=== PATIENT | male | born 1990 | race Caucasian/White ===

== ENCOUNTER 2024-06-12 06:30 | Emergency (ER) | payer BC, OTHER, SELFPAY ==
[2024-06-12 06:40] VITALS: BP 133/97; PULSE 57; RESP 16; TEMP 36.8; O2SAT 98; BMI 26.6
--- NOTE | 2024-06-12 06:45 | ED_ITS ---
HPI - General Adult General Chief complaint: Chest Pain Stated complaint: chest pains, dizziness Time Seen by Provider: 06/12/24 06:43 History of Present Illness HPI narrative: Patient c/o about 6 episodes of pin-prick left chest pain since 2300 last night. Patient then had an episode of dizziness with vision going out that lasted 20 min while [address] home from work at 0515. Patient denies SOB, recent illness, diaphoresis. Patient declines listing a pharmacy on his account and states, I will probably decline anything you try to give me. [facility]CP [facility] 33-year-[facility] man presenting to the emergency department with concern of twinges of chest pain is if a needle is going into his left chest about 2-3 inches deep. This feeling he has lasts about 1-2 seconds. Was occurring in groups beginning around 11:00 p.m. last night. No noted shortness of breath. Did have sensation at that time into his left arm as well. Had some more episodes this morning when he pulled into his drive and heart to struck and reached over for his lung pail became lightheaded as well and was experiencing these pinpricks and had about 20 seconds of wavy vision. Does exercise regularly without difficulty. No health problems. No medications. Does not use substances; no smoking. In further conversation it appears that he is concerned about a potential blood clot. No headache. Related Data Home Medications ?Medication ?Instructions ?Recorded ?Confirmed No Known Home Medications 06/12/24 06/12/24 Allergies Allergy/AdvReac Type Severity Reaction Status Date / Time No Known Drug Allergies Allergy Verified 06/12/24 06:44 Review of Systems Status of ROS: Reports: 6 or more systems reviewed and unremarkable except as noted in History and below [facility] Social History service: Yes Exam Narrative: Exam Narrative: NAD. Cranial nerves 2-12 intact. Wears glasses. Pupils are equal and reactive. Breathing easily. Heart in slow to bradycardic rate and regular rhythm. No murmur rub or gallop identified. Lungs are clear. Well built. No reproduction of discomfort to palpation over the chest. Skin is warm and dry without evidence of lesions, rash. Moving all extremities without difficulty. Well-perfused. No edema. Const: Vital Signs, click to edit/add: Vital Signs - 24 hr 06/12/24 06:40 06/12/24 08:00 Temperature 98.3 F Pulse Rate [Left P ulse Oximeter] 57 L Pulse Rate [orthos tatic lying Left P ulse Oximeter] 55 L Pulse Rate [orthos tatic sitting Left Pulse Oximeter] 55 L Pulse Rate [orthos tatic standing Lef t Pulse Oximeter] 76 Respiratory Rate 16 Blood Pressure [Le ft Upper Arm] 133/97 H Blood Pressure [or thostatic lying Le ft Arm] 119/85 Blood Pressure [or thostatic sitting Left Arm] 120/82 Blood Pressure [or thostatic standing Left Arm] 122/97 H Pulse Oximetry 98 Oxygen Delivery Me thod Room Air Documenting provider has reviewed patient's vital signs: yes Course Vital Signs Vital signs: Initial Vital Signs Temperature 98.3 F 06/12/24 06:40 Temperature Source Temporal Artery Scan 06/12/24 06:40 Pulse Rate 57 L 06/12/24 06:40 Respiratory Rate 16 06/12/24 06:40 Blood Pressure 133/97 H 06/12/24 06:40 Blood Pressure Mean 109 H 06/12/24 06:40 Blood Pressure Position Semi-Fowlers 06/12/24 06:40 Pulse Oximetry 98 06/12/24 06:40 Oxygen Delivery Method Room Air 06/12/24 06:40 Vital Signs Temperature 98.3 F 06/12/24 06:40 Pulse Rate 57 L 06/12/24 06:40 Respiratory Rate 16 06/12/24 06:40 Blood Pressure 133/97 H 06/12/24 06:40 Pulse Oximetry 98 06/12/24 06:40 Oxygen Delivery Method Room Air 06/12/24 06:40 Temperature 98.3 F 06/12/24 06:40 Pulse Rate 55 L 06/12/24 08:00 Respiratory Rate 16 06/12/24 06:40 Blood Pressure 119/85 06/12/24 08:00 Pulse Oximetry 98 06/12/24 06:40 Oxygen Delivery Method Room Air 06/12/24 06:40 Medical Decision Making MDM Narrative Medical decision making narrative: Very doubtful that this is a blood clot given symptoms as he describes. I would have concerns more about PVCs maybe PACs or some other arrhythmia. Seizure? Does not appear postictal. Other vasospasm? I do not think that this is primary ischemic cardiovascular event. Further, Evelio is opposed to drawing blood 1st that it is uncomfortable experience for him but also has had some bad experiences with it. So I propose just watching on environmental monitoring technician for a while at this point. No events during time of monitoring in the emergency department. Rested. Further discussion reveals that has been working nights lately. Usually a dayshift worker. Has been working a lot. Apparently this happens a couple of times a year. Had a couple very small twinges of discomfort during my final conversation but I do not appreciate anything on monitor upon review Orthostatics are WNL. Is asymptomatic. See patient discharge plan for further discussion After review of the environmental monitoring technician, I cannot see any unusual rhythm over this time. Stay well-hydrated. Try to get quality and regular sleep; hopefully can get back to your day job soon. If these pains keep happening, I would consider a longer-term environmental monitoring technician and follow-up for next steps with your primary care provider. Return for increasing and persistent chest pain, worsening lightheadedness. ECG Data Attestation: I personally reviewed and interpreted this ECG as follows: (Sinus bradycardia rate of 56. No Q-waves. No delta wave. ) Discharge Plan Discharge Clinical Impression: Atypical chest pain Patient Disposition: Home, Self-Care Condition: Stable Additional Instructions: After review of the environmental monitoring technician, I cannot see any unusual rhythm over this time. Stay well-hydrated. Try to get quality and regular sleep; hopefully can get back to your day job soon. If these pains keep happening, I would consider a longer-term environmental monitoring technician and follow-up for next steps with your primary care provider. Return for increasing and persistent chest pain, worsening lightheadedness. Prescriptions: No Action No Known Home Medications Follow Up/Referrals: Kirk Keys NP [Primary Care Provider] - Stand Alone Forms: [employer] Info Instructions
[2024-06-12 08:00] VITALS: BP 119/85; BP 120/82; BP 122/97; PULSE 55; PULSE 76
== END 2024-06-12 08:30 | disposition home or self-care (01) ==
PROVIDERS: Emergency Provider Family Medicine; PCP Nurse Practitioner Family
DX: R07.9 Chest pain, unspecified (principal)
CPT/HCPCS: 99283; 99284